=== PATIENT | male | born 1945 | race Caucasian/White ===

== ENCOUNTER → 2020-11-15 | Outpatient (CLI) | payer MEDICARE | END | disposition home or self-care (01) | LOC: EDBD → SHCH 08:40 | PROVIDERS: ATTEND Internal Medicine Cardiovascular Disease | DX: I25.119 Atherosclerotic heart disease of native coronary artery with unspecified angina pectoris (principal) | CPT/HCPCS: 93306; 93356 ==

== ENCOUNTER → 2020-11-19 | Outpatient (CLI) | payer MEDICARE ==
[~2020-11-19] VITALS: Ht 182.9 cm; Wt 120.7 kg
[~2020-11-19] MED LIST: REGADENOSON 0.4 MG/5 ML PF SYG IVP SCH
== END | disposition home or self-care (01) ==
LOC: SHCH 08:12
PROVIDERS: ATTEND Internal Medicine Cardiovascular Disease
DX: I25.119 Atherosclerotic heart disease of native coronary artery with unspecified angina pectoris (principal)
CPT/HCPCS: 78452; 93017; 96374; A9500 ×2; J2785

== ENCOUNTER → 2025-02-05 | Outpatient (CLI) | payer MEDICARE, OTHER ==
--- NOTE | 2025-02-05 10:36 | HMCIMG ---
MR BRAIN WO CON HISTORY: Forgetfulness COMPARISON: None TECHNIQUE: MRI of the brain was performed utilizing multiple pulse sequences in axial, coronal and sagittal planes. Patient was not given contrast through intravenous route. FINDINGS: The ventricles and extraventricular CSF spaces are dilated consistent with cerebral atrophy. Nonspecific white matter changes are seen. There is no midline shift, mass effect or herniation. No subacute hemorrhage is seen. No MR evidence of acute infarct is seen in the diffusion weighted images. Cerebellar tonsils are in normal position. There are bilateral ethmoid, maxillary and sphenoid sinusitis with mucoperiosteal thickening. No MR evidence of a mass lesion is seen in this noncontrast study. IMPRESSION: 1. No MR evidence of acute infarct is seen in the diffusion weighted images. Bilateral ethmoid, maxillary and sphenoid sinus disease.
== END | disposition home or self-care (01) ==
LOC: RAH 09:15
PROVIDERS: ATTEND Internal Medicine
DX: J32.2 Chronic ethmoidal sinusitis (principal); J32.3 Chronic sphenoidal sinusitis; J32.0 Chronic maxillary sinusitis; G93.89 Other specified disorders of brain; R90.82 White matter disease, unspecified; R41.3 Other amnesia
CPT/HCPCS: 70551

== ENCOUNTER → 2025-08-07 | Outpatient (CLI) | payer MEDICARE, OTHER ==
--- NOTE | 2025-08-08 07:36 | HMCIMG ---
EXAMINATION: ULTRASOUND OF THE SCROTUM. CLINICAL HISTORY: Pain. COMPARISON: None. TECHNIQUE: Real-time grayscale ultrasound images of the testes. FINDINGS: Both the testicles are normal in caliber. There is mild inhomogenous echotexture in the right testis. The right testicle measures 4.4 x 2.3 x 1.9 cm. There is a cyst that measures 0.5 x 0.3 cm in the lower pole. The left testicle measures 4.3 x 2.9 x 2.6 cm. There is patent flow in both the testicles. Both the epididymides are normal in appearance. The right epididymis measures 0.8 cm. There is a cyst that measures 0.6 x 0.5 cm in the head. The left epididymis measures 0.9 cm. There is right varicocele that measures 0.39 cm. No varicocele on the left side. There is no hydrocele. The scrotal wall appears normal. There is a large left inguinal hernia, the sac measures 12.4 x 7.8 x 7.5 cm and contains omentum. IMPRESSION: Inhomogenous echotexture of the right testis, of concern for chronic orchitis. Simple cyst in the right testis. Simple cyst in the head of the right epididymis. Right varicocele. Large left inguinal hernia. /Emily
== END | disposition home or self-care (01) ==
LOC: RAH 13:34
PROVIDERS: ATTEND Internal Medicine
DX: N44.2 Benign cyst of testis (principal); N50.3 Cyst of epididymis; I86.1 Scrotal varices; K40.90 Unilateral inguinal hernia, without obstruction or gangrene, not specified as recurrent; N50.89 Other specified disorders of the male genital organs; N50.82 Scrotal pain
CPT/HCPCS: 76870